=== PATIENT | female | born 1960 | race Caucasian/White ===

== ENCOUNTER 2022-12-23 08:42 | Emergency (ER) | payer OTHER ==
[2022-12-23] MEDS ORDERED: DIPHTH,PERTUSS(ACELL),TET 0.5 ML DISP.SYRIN IM ONE ×2 (09:28→09:56)
[2022-12-23 09:35] VITALS: BP 124/70; PULSE 91; RESP 20; TEMP 98.9; BMI 24.1
== END 2022-12-23 10:10 | disposition home or self-care (01) ==
LOC: FER 08:42
PROC: 0HQ1XZZ Repair Face Skin, External Approach (ICD-10-PCS; principal; 2022-12-23)
PROC: 3E0234Z Introduction of Serum, Toxoid and Vaccine into Muscle, Percutaneous Approach (ICD-10-PCS; 2022-12-23)
DX: S01.81XA Laceration without foreign body of other part of head, initial encounter (principal); W22.8XXA Striking against or struck by other objects, initial encounter
CPT/HCPCS: 90715; 99283-25